=== PATIENT | male | born 1990 | race Caucasian/White ===

== ENCOUNTER 2017-09-03 04:50 | Emergency (ER) | payer SELFPAY ==
[~2017-09-03] VITALS: Ht 170.2 cm; Wt 73.0 kg
[2017-09-03] MEDS ORDERED: IBUPROFEN 600MG TABLET PO ONE (05:45)
[2017-09-03] MEDS ORDERED: TETANUS, DIPHTHERIA, PERTUSSIS VAC/PF 0.5ML (>7YR OLD) IM ONE (05:45)
[2017-09-03] MEDS ORDERED: LIDOCAINE HCL 1% 20ML VIAL (Pyxis) INJ MC ONE (05:45)
[2017-09-03] MEDS ORDERED: LIDOCAINE HCL 1% 20ML VIAL (Pyxis) INJ INFIL ONE ×2 (11:00→11:30)
[2017-09-03] MEDS ORDERED: LORAZEPAM 1MG TABLET PO ONE (12:30)
[2017-09-03 14:54] VITALS: BP 110/65
== END 2017-09-03 16:12 | disposition home or self-care (01) ==
LOC: ER 04:50
DX: S62.002A Unspecified fracture of navicular [scaphoid] bone of left wrist, initial encounter for closed fracture (principal); S01.511A Laceration without foreign body of lip, initial encounter; F41.0 Panic disorder [episodic paroxysmal anxiety]; F10.129 Alcohol abuse with intoxication, unspecified; Y08.89XA Assault by other specified means, initial encounter; Y93.89 Activity, other specified; Y92.89 Other specified places as the place of occurrence of the external cause; Y99.8 Other external cause status; Z88.0 Allergy status to penicillin; Y90.9 Presence of alcohol in blood, level not specified
CPT/HCPCS: 12011; 29125; 70450; 73110; 90471; 90715; 99284; J3490; X7700; Z7610